=== PATIENT | male | born 1990 | race Caucasian/White ===

== ENCOUNTER → 2017-10-21 | Outpatient (REF) ==
[2017-10-21 19:55] LABS: THYROID STIMULATING HORMONE 2.77 uIU/mL (0.465-4.680)
== END ==
LOC: ZLAB.WCH 18:33
PROVIDERS: Nurse Practitioner Family
DX: Z01.89 Encounter for other specified special examinations (principal)

== ENCOUNTER → 2017-11-30 | Outpatient (REF) | LOC: ZLAB.WCH 18:06 | DX: Z01.89 Encounter for other specified special examinations (principal) | CPT/HCPCS: G0103 ==